=== PATIENT | female | born 1960 | race Caucasian/White ===

== ENCOUNTER → 2017-04-16 | Emergency (ER) | payer OTHER ==
[~2017-04-16] MED LIST: IBUPROFEN 600 MG TAB PO ONE
[2017-04-16 06:58] VITALS: PULSE 92; RESP 18; TEMP 98.4; O2SAT 95
--- NOTE | 2017-04-16 07:24 | EDPHY ---
H & P Time Seen by Provider: 04/16/17 06:58 HPI/ROS: CHIEF COMPLAINT: Right thumb swelling HISTORY OF PRESENT ILLNESS: 57-year-old female who works as a community engagement leader in [place] was bit on the right hand 10 days ago. She presents reporting most of the puncture wounds have healed appropriately, however, a bite site over the palmar aspect of the right thumb has become swollen, painful, erythematous. No fever. No systemic illness. No nausea, vomiting, or diarrhea. Patient has not taken any antibiotics for this particular bite. REVIEW OF SYSTEMS: Aside from elements discussed in the HPI, a comprehensive 10-point review of systems was reviewed and is negative. PAST MEDICAL HISTORY: Noncontributory. SOCIAL HISTORY: Visiting for a conference. Nonsmoker. GENERAL APPEARANCE: Pleasant, alert, no acute distress. FOCUSED EXAM OF right hand: Healed puncture sites are present on the dorsal aspect of the hand, near the 1st interosseous space. Right thumb: On the palmar of the proximal phalanx aspect there is a bite site which is swollen, erythematous, tender to palpation. Very slight fluctuance. Normal function at the MCP and IP joint of the thumb. Brisk capillary refill. Normal sensation. Neurovascular exam: Good capillary refill, normal motor exam, normal neurologic exam. Smoking Status: Never smoked Constitutional: Initial Vital Signs Temperature (C) 36.9 C 04/16/17 06:53 Heart Rate 92 04/16/17 06:53 Respiratory Rate 18 04/16/17 06:53 Blood Pressure 171/92 H 04/16/17 06:53 O2 Sat (%) 95 04/16/17 06:53 O2 Delivery Mode Room Air Allergies/Adverse Reactions: No Known Allergies Allergy (Unverified 04/16/17 06:51) Home Medications: Medication Instructions Recorded Amoxicillin/Clavulanate Pot 875 mg PO BID #20 tab 04/16/17 [Augmentin 875 MG TAB (*)] MDM/Departure - MDM Procedures: Procedure: Abscess drainage. The patient's abscess was located on the right thumb. Risks, benefits, alternatives discussed with the patient and consent obtained. The abscess was incised with a #15. Blade and drop of purulent drainage was expressed. Small amount quarter-inch packing was placed to hold the incision open. The patient tolerated the procedure well. The procedure was performed by myself. Medications Given: Discontinued Medications Ibuprofen (Motrin) 600 mg PO EDNOW ONE Stop: 04/16/17 07:25 Last Admin: 04/16/17 07:31 Dose: 600 mg ED Course/Re-evaluation: 57-year-old female with a infected dog bite site on her right thumb. Area of possible fluctuance was I and D'd with a puncture incision and a very small drop of purulent material was recovered. Small bit of packing was placed to hold the incision site open. Tube gauze dressing was placed. Patient was placed on Augmentin. Please see discharge instructions. Differential Diagnosis: Differential diagnoses for the patient's symptom complex was considered including but not limited to foreign body, infected dog bite, abscess, cellulitis, deep space infection.. - Depart Disposition: Home, Routine, Self-Care Clinical Impression: Cellulitis Qualifiers: Site of cellulitis: extremity Site of cellulitis of extremity: finger Laterality: right Qualified Code(s): L03.011 - Cellulitis of right finger Dog bite of finger Qualifiers: Encounter type: initial encounter Qualified Code(s): S61.259A - Open bite of unspecified finger without damage to nail, initial encounter; W54.0XXA - Bitten by dog, initial encounter; W54.0XXA - Bitten by dog, initial encounter Condition: Good Instructions: Amoxicillin/Clavulanate Potassium (By mouth), Animal Bite (ED), Warm Compress or Soak (ED) Additional Instructions: Please take antibiotic as directed. Augmentin 875/125 by mouth 2 times a day for 10 days. Please use Tylenol or ibuprofen as needed for pain and discomfort. You may remove the tube gauze dressing tomorrow. When the packing is removed, please soak thumb in warm water several times a day to encourage drainage. You may dress the small incision site as desired after the tube gauze dressing is removed. If your symptoms are not improving as expected within the next 24-36 hours please return to the emergency department. If your worsening significantly, develops a fever, increased pain, increased swelling in the thumb, redness or streaks onto the palm and up the forearm, or other concerns, please return to the emergency department or seek care urgently. Prescriptions: Amoxicillin/Clavulanate Pot [Augmentin 875 MG TAB (*)] 875 mg PO BID #20 tab
[2017-04-16 07:36] VITALS: BP 156/96
== END | disposition home or self-care (01) ==
LOC: CED 06:43
PROC: 0H9FXZZ Drainage of Right Hand Skin, External Approach (ICD-10-PCS; principal; 2017-04-16)
DX: S61.051A Open bite of right thumb without damage to nail, initial encounter (principal); L03.011 Cellulitis of right finger; W54.0XXA Bitten by dog, initial encounter; Y92.89 Other specified places as the place of occurrence of the external cause; Y99.0 Civilian activity done for income or pay; Y93.89 Activity, other specified